=== PATIENT | male | born 1990 | race African-American/Black ===

== ENCOUNTER 2023-02-26 17:10 | Emergency (ER) | payer MEDICARE, MEDICAID ==
[~2023-02-26] VITALS: Ht 172.7 cm; Wt 76.1 kg
[~2023-02-26 17:10] MED LIST: ABIL1INJ IM; BENZ200C70 PO; DEPA250T32 PO; LINZ145C PO; MUCI1TAB16 PO
[2023-02-26 17:13] VITALS: BP 129/80; TEMP 98.9; O2SAT 98
[2023-02-26] MEDS ORDERED: ACETAMINOPHEN TAB 650MG DOSE (2X325MG) PO ONE (18:45)
[2023-02-27] MEDS ORDERED: ABIL1INJ2 IM (21:32)
[2023-02-27] MEDS ORDERED: DIVA500T94 PO (21:32)
[2023-02-27] MEDS ORDERED: LINZ72CA PO (21:32)
[2023-02-27] MEDS ORDERED: med rec comment (21:37)
== END 2023-02-26 19:04 | disposition left against medical advice (07) ==
LOC: M ED 17:10
DX: S09.90XA Unspecified injury of head, initial encounter (principal); Y04.8XXA Assault by other bodily force, initial encounter; Y92.009 Unspecified place in unspecified non-institutional (private) residence as the place of occurrence of the external cause; Y93.89 Activity, other specified; Y99.8 Other external cause status; D64.9 Anemia, unspecified; K52.9 Noninfective gastroenteritis and colitis, unspecified; Z79.899 Other long term (current) drug therapy

== ENCOUNTER 2023-02-27 19:33 | Inpatient (IN) | payer MEDICARE, MEDICAID ==
[~2023-02-27] VITALS: Ht 172.7 cm; Wt 75.0 kg
[2023-02-27 20:12] LABS: HEMATOCRIT 44.3 % (42.0-52.0); HEMOGLOBIN 14.5 g/dl (13.5-17.5); MEAN CORPUSCULAR HEMOGLOBIN 32.1 pg (27.0-33.0); MEAN CORPUSCULAR HGB CONC 32.7 g/dl (32.0-36.5); PLATELET COUNT, AUTOMATED 247 10^3/uL (150-450); RED BLOOD COUNT 4.52 10^6/uL (4.30-6.10); WHITE BLOOD COUNT 11.8 10^3/uL (4.0-10.0)
[2023-02-27 20:28] LABS: AMPHETAMINES LEVEL URINE NEGATIVE (NEGATIVE); BARBITURATES URINE NEGATIVE (NEGATIVE); BENZODIAZEPINES URINE NEGATIVE (NEGATIVE); COCAINE METABOLITE URINE NEGATIVE (NEGATIVE); METHADONE URINE NEGATIVE (NEGATIVE); OPIATES URINE NEGATIVE (NEGATIVE); PHENCYCLIDINE URINE NEGATIVE (NEGATIVE)
[2023-02-27 20:29] LABS: CANNABINOIDS URINE POSITIVE (NEGATIVE)
[2023-02-27 20:31] LABS: ETHYL ALCOHOL (ETHANOL) < 0.003 % (0.000-0.010); VALPROIC ACID (DEPAKOTE) < 3.0 UG/ML (50.0-100.0)
[2023-02-27 20:32] LABS: ACETAMINOPHEN LEVEL < 2.0 UG/ML (10.0-20.0)
[2023-02-27 20:33] LABS: ALBUMIN 4.2 G/DL (3.2-5.2); ALKALINE PHOSPHATASE 57 U/L (46-116); ALT/SGPT 19 U/L (7.0-40); AST/SGOT 33 U/L (<34); BILIRUBIN,DIRECT 0.3 MG/DL (<0.4); BILIRUBIN,TOTAL 0.7 MG/DL (0.3-1.2); BLOOD UREA NITROGEN 11 MG/DL (9-23); CALCIUM LEVEL 9.3 MG/DL (8.5-10.1); CARBON DIOXIDE LEVEL 29 MMOL/L (20-31); CHLORIDE LEVEL 106 MMOL/L (98-107); CREATININE FOR GFR 0.99 MG/DL (0.70-1.30); GLOMERULAR FILTRATION RATE > 60.0 (>60); GLUCOSE, FASTING 77 MG/DL (60-100); SALICYLATE LEVEL < 3.0 MG/DL (<30); SODIUM LEVEL 140 MMOL/L (136-145); TOTAL PROTEIN 6.9 G/DL (5.7-8.2)
[2023-02-27 20:35] LABS: THYROID STIMULATING HORMONE 0.181 uIU/ML (0.55-4.78)
[2023-02-27] MEDS ORDERED: traZODone 50 MG TAB PO PRN (21:25)
[2023-02-27] MEDS ORDERED: ACETAMINOPHEN TAB 650MG DOSE (2X325MG) PO PRN (21:25)
[2023-02-27] MEDS ORDERED: MAALOX 30 ML SUSP *UDC PO PRN (21:25)
[2023-02-27] MEDS ORDERED: OLANZapine ORAL DISINTEGRATING TAB 5MG PO PRN (21:25)
[2023-02-27] MEDS ORDERED: ABIL1INJ2 IM (21:32)
[2023-02-27] MEDS ORDERED: DIVA500T94 PO (21:32)
[2023-02-27] MEDS ORDERED: LINZ72CA PO (21:32)
[2023-02-27] MEDS ORDERED: med rec comment (21:37)
[2023-02-27] MEDS ORDERED: HOME MED LIST COMPLETE! XX SCH (21:40)
[2023-02-27 22:45] VITALS: BP 129/85; TEMP 97.3; O2SAT 98
[2023-02-28 06:46] VITALS: BP 112/69; TEMP 97.6; O2SAT 100
[2023-02-28] MEDS: PALIPERIDONE 3MG ER TAB (INVEGA) PO SCH ×2 (10:02→21:25)
[2023-02-28] MEDS: NICOTINE 21MG/24HR 1 EA TRANSDERMAL TD SCH (16:36)
[2023-02-28 17:53] VITALS: BP 128/72; TEMP 98.2; O2SAT 99
[2023-02-28] MEDS: MOM 30ML SUSPENSION UDC PO PRN (21:26)
[2023-03-01 06:49] VITALS: BP 140/64; TEMP 97.2; O2SAT 100
[2023-03-01] MEDS: NICOTINE 21MG/24HR 1 EA TRANSDERMAL TD SCH (08:01)
[2023-03-01] MEDS: PALIPERIDONE 3MG ER TAB (INVEGA) PO SCH ×2 (08:01→21:27)
[2023-03-01 16:43] VITALS: BP 132/80; TEMP 98.6; O2SAT 98
[2023-03-01] MEDS: MOM 30ML SUSPENSION UDC PO PRN (21:27)
[2023-03-02 06:44] VITALS: BP 126/60; TEMP 97.7; O2SAT 100
[2023-03-02] MEDS: PALIPERIDONE 3MG ER TAB (INVEGA) PO SCH (07:50)
[2023-03-02] MEDS: NICOTINE 21MG/24HR 1 EA TRANSDERMAL TD SCH (07:51)
[2023-03-02] MEDS ORDERED: risperiDONE LONG-ACTING 25MG 2ML INJ IM SCH (10:05)
[2023-03-02] MEDS ORDERED: NICO21PAT TD (10:15)
[2023-03-02] MEDS ORDERED: PALI1TAB2 PO (10:15)
[2023-03-02] MEDS ORDERED: RISP25INJ IM (10:15)
== END 2023-03-02 11:58 | disposition home or self-care (01) | DRG 882 ==
LOC: M ED 19:33 → M ED INP 21:24 → M PSY 22:27
PROVIDERS: ADMIT Student in an Organized Health Care Education/Training Program; ATTEND Student in an Organized Health Care Education/Training Program
DX: F43.10 Post-traumatic stress disorder, unspecified (principal); R45.851 Suicidal ideations; F12.10 Cannabis abuse, uncomplicated; Z79.899 Other long term (current) drug therapy; F17.200 Nicotine dependence, unspecified, uncomplicated; F29 Unspecified psychosis not due to a substance or known physiological condition; F60.89 Other specific personality disorders; F84.9 Pervasive developmental disorder, unspecified